=== PATIENT | male | born 1985 | race Caucasian/White ===

== ENCOUNTER 2024-02-28 18:18 | Emergency (ER) | payer OTHER, SELFPAY ==
[2024-02-28 18:27] VITALS: BP 138/98; PULSE 88; RESP 16; TEMP 37.1; O2SAT 98
--- NOTE | 2024-02-28 19:24 | ED.EXTPRO ---
HPI - Extremity Problem General Chief complaint: Extremity Problem,Nontraumatic Stated complaint: BLE cellulitis Time Seen by Provider: 02/28/24 18:54 History of Present Illness HPI Narrative: 38-year-old male presents to the emergency department for evaluation for suspected cellulitis. Patient has had the issue before. Patient attributes it to his long work boots that he wears. Patient states that he did take some of his family members antibiotics and these helped. Patient states he was on a course of amoxicillin for approximately 1 week and the rash almost completely resolved. Patient states after stopping the antibiotics the rash worsened again. Patient is not diabetic Related Data Allergies Allergy/AdvReac Type Severity Reaction Status Date / Time Sulfa (Sulfonamide Allergy Intermediate RASH, Verified 02/28/24 18:20 Antibiotics) SWELLING Review of Systems Review of Systems: All systems reviewed & are unremarkable except as noted in HPI and below Exam Narrative: APPEARANCE: Well appearing, no pain, no distress, well-nourished. HEAD: normocephalic, atraumatic. EYES: PERRLA/EOMI, conjunctivae clear. NOSE: Normal no drainage EARS:TMS clear with good light reflex. THROAT: Pharynx clear, no exudate. NECK: Supple. No adenopathy, no masses. RESPIRATORY: Airway patent, respirations nonlabored. Clear to auscultation bilaterally, no rales, rhonchi, wheezing. CARDIOVASCULAR: Regular rate and rhythm without murmurs rubs or gallops. ABDOMINAL: Soft, nontender, nondistended, normal bowel sounds MUSCULOSKELETAL: Moves all extremities. Strength/ROM intact, No edema, No calf tenderness. NEURO: Alert. Cranial nerves II through XII intact. Good gait. Good coordination SKIN: cellulitis on left lateral dumont and right dumont Course Course Emergency Course: patient was started on antibiotics for cellulitis Vital Signs Vital signs: Vital Signs Temperature 98.7 F 02/28/24 18: Pulse Rate 88 02/28/24 18:27 Respiratory Rate 16 02/28/24 18:27 Blood Pressure 138/98 H 02/28/24 18:27 Pulse Oximetry 98 02/28/24 18:27 Temperature 98.7 F 02/28/24 18:27 Pulse Rate 88 02/28/24 18:27 Respiratory Rate 16 02/28/24 18:27 Blood Pressure 138/98 H 02/28/24 18:27 Pulse Oximetry 98 07/13/24 18:27 MDM - Extremity (Nontraumatic) MDM Narrative Medical decision making narrative: 38-year-old male presents emergency department for evaluation of bilateral lower extremity rash consistent with cellulitis. patient was started on antibiotics emergency department and patient was provided antibiotics for home. Patient was encouraged close follow-up with his physician for wound check. All questions concerns were addressed. Differential Diagnosis Differential diagnosis: Likely herpes zoster, cellulitis and other ( Psoriasis) Discharge Plan Discharge Clinical Impression: Cellulitis Patient Disposition: Home, Self-Care Condition: Stable Instructions: Antibiotic Form, Cellulitis (ED) Additional Instructions: Antibiotic as directed until completed. Have close follow-up with a primary care physician for a wound check. If you have any worsening symptoms please call or return to the emergency department. Prescriptions: New cephalexin 500 mg capsule 500 mg PO Q6H 7 Days Qty: 28 0RF Follow-up/Referrals: Clint Virk MD [Physician] - PHYSICIAN,DIRECTOR PAYER [Primary Care Provider] -
== END 2024-02-28 20:12 | disposition home or self-care (01) ==
PROVIDERS: Emergency Provider Emergency Medicine
DX: L03.116 Cellulitis of left lower limb (principal); L03.115 Cellulitis of right lower limb
CPT/HCPCS: 96365; 99284; J0696

== ENCOUNTER 2024-03-08 12:43 | Emergency (ER) | payer OTHER, SELFPAY ==
[2024-03-08 12:49] VITALS: BP 132/73; PULSE 77; RESP 20; TEMP 36.6; O2SAT 100
--- NOTE | 2024-03-08 15:10 | ED.SKABFB ---
HPI - Skin/Abscess/Foreign Bdy General Chief complaint: Skin/Abscess/Foreign Body Stated complaint: hives after finishing abx Time Seen by Provider: 03/08/24 14:54 History of Present Illness HPI narrative: 38-year-old male presenting with hives. States that he was treated here about 10 days ago for cellulitis. States that he took his last dose of Keflex yesterday morning. This morning he woke up with hives on his face so he became concern for allergic reaction. Denies shortness of breath, throat swelling, nausea vomiting, or other systemic symptoms. States that he still has some redness on his right lower leg. Related Data Allergies Allergy/AdvReac Type Severity Reaction Status Date / Time Sulfa (Sulfonamide Allergy Intermediate RASH, Verified 03/08/24 14:36 Antibiotics) SWELLING cephalexin Allergy Hives Verified 03/08/24 14:40 latex AdvReac Hives Verified 03/08/24 14:36 Review of Systems Review of Systems: All systems reviewed & are unremarkable except as noted in HPI and below Exam Narrative: GENERAL: Well-appearing, no acute distress, pleasant cooperative HEAD: Normocephalic, atraumatic. EYES: PERRLA and EOMI. ENT: Mucous membranes moist. NECK: Supple. CHEST: Clear to auscultation. No respiratory distress. No wheezing HEART: Regular rate and rhythm EXTREMITIES: Normal range of motion. SKIN: Warm, dry, + urticarial rash affecting face, neck NEURO: No focal deficits. Alert and oriented x3. PSYCH: Normal mood and affect. Course Vital Signs Vital signs: Vital Signs Temperature 97.8 F 03/08/24 12:49 Pulse Rate 77 03/08/24 12:49 Respiratory Rate 20 03/08/24 12:49 Blood Pressure 132/73 03/08/24 12:49 Pulse Oximetry 100 03/08/24 12:49 Oxygen Delivery Room Air 03/08/24 12:49 Temperature 97.8 F 03/08/24 12:49 Pulse Rate 77 03/08/24 12:49 Respiratory Rate 20 03/08/24 12:49 Blood Pressure 132/73 03/08/24 12:49 Pulse Oximetry 100 03/08/24 12:49 Oxygen Delivery Room Air 03/08/24 12:49 MDM - Skin/Abscess/Foreign Bdy MDM Narrative Medical decision making narrative: 38-year-old male presenting with urticaria. Vitals are stable. Exam remarkable for the above. He does have an urticarial rash, there is no evidence of anaphylaxis or systemic involvement. Advised daily cetirizine. Patient continues to have evidence of some cellulitis involving his right lower extremity. Start him on clinda. He states that he has follow-up appointment already scheduled for next week. Appropriate return precautions given. Discharged in stable condition. Differential Diagnosis Differential diagnosis: Likely abscess of skin or subcutaneous tissue, urticaria, cellulitis and contact dermatitis Medical Records Attestation: I reviewed the patient's medical records. Critical Care Time Critical Care Time Critical Care Time: No Discharge Plan Discharge Clinical Impression: Urticaria, Cellulitis Patient Disposition: Home, Self-Care Condition: Stable Instructions: Antibiotic Form, Urticaria (ED) Additional Instructions: Please take Zyrtec once daily to help with the hives. We have started you on a different antibiotic to help with the rashes on your legs. Make sure to follow-up with your doctor next week. If your symptoms worsen or other concerning symptoms arise, please return to the ER. Prescriptions: New clindamycin HCl 300 mg capsule 300 mg PO Q6H Qty: 40 0RF No Action cephalexin 500 mg capsule 500 mg PO Q6H 7 Days Qty: 28 0RF Follow-up/Referrals: UNKNOWN,DOCTOR [Primary Care Provider] - Stand Alone Forms: Work/School Release IP
== END 2024-03-08 15:22 | disposition home or self-care (01) ==
PROVIDERS: Emergency Provider Emergency Medicine
DX: L50.9 Urticaria, unspecified (principal); L03.115 Cellulitis of right lower limb
CPT/HCPCS: 99283

== ENCOUNTER 2024-06-22 08:03 | Emergency (ER) | payer OTHER, SELFPAY ==
--- NOTE | 2024-06-22 08:17 | ED.SKABFB ---
HPI - Skin/Abscess/Foreign Bdy General Chief complaint: Skin/Abscess/Foreign Body Stated complaint: hives Time Seen by Provider: 06/22/24 09:07 Source: patient, RN notes reviewed and old records reviewed Mode of arrival: ambulatory Limitations: no limitations History of Present Illness HPI narrative: 38-year-old male to Express Care with complaint of erythematous, itching rash to A's, chest, back, bilateral arms. Patient reports that he ate [place] food on Friday night that contained seafood. Patient reports that rash began Friday morning. Patient endorses having a similar reaction to seafood once before. Patient does not currently have a PCP. Patient denies cough, shortness of breath, throat swelling, difficulty swallowing. Patient able to tolerate fluids by mouth. Patient resting uncomfortably in exam room in no acute distress. Respirations even and nonlabored. Patient able to speak in complete sentences without difficulty. Related Data Allergies Allergy/AdvReac Type Severity Reaction Status Date / Time Sulfa (Sulfonamide AdvReac Intermediate RASH, Verified 06/22/24 08:27 Antibiotics) SWELLING cephalexin AdvReac Mild Hives Verified 06/22/24 08:27 latex AdvReac Mild Hives Verified 06/22/24 08:27 Review of Systems Review of Systems: All systems reviewed & are unremarkable except as noted in HPI and below Constitutional: Constitutional: Reports no additional constitutional complaints Eyes: Eyes: Reports no additional eye complaints ENT: Reports system reviewed and no additional complaints, except as documented Cardiovascular: Cardiovascular: Reports no additional cardiovascular complaints, Denies chest pain and Denies dyspnea Respiratory: Respiratory: Reports no additional respiratory complaints, Denies cough and Denies dyspnea Musculoskeletal: Musculoskeletal: Reports no additional musculoskeletal complaints Integumentary/Breasts: Skin/Breast: Reports pruritus, Reports erythema and Reports rash Neurologic: Reports system reviewed and no additional complaints, except as documented Psychiatric: Psychiatric: Reports no additional psychiatric complaints PMFSH Comments At the time of my signature, I reviewed and agree with the nursing past medical, surgical, social, and family history. There is no relevant family history pertinent to the patient complaint. Exam Const: General: cooperative, no acute distress, alert, uncomfortable and well nourished Nutritional Appearance: well nourished Orientation/consciousness: patient oriented x3 Limitations: no limitations HENMT: Head: normal to inspection Ears: external ears normal Face/Nose/Sinus: Normal external nose present, Normal nares present, normal facial exam, No erythema and No edema Face and sinus: normal facial exam, no erythema and no edema Mouth: Yes Normal oral and palatal mucosa present Eyes: General: appearance normal, both eyes and all related structures Neck: Neck: normal visual inspection, full ROM and no meningeal signs Chest: Chest palpation & inspection: normal inspection of the chest Resp: Effort & Inspection: normal respiratory effort and able to speak in complete sentences Auscultation: clear to auscultation bilaterally Cardio: Jugular venous distension: no JVD Rate: regular rate Rhythm: regular rhythm Back/Spine/Pelvis: Cervical Spine: cervical ROM normal Skin: General skin exam: normal color, no rashes or lesions noted and turgor normal Rashes: rashes noted patches diffuse multiple locations color red Neuro: General: patient oriented x3, gait normal, moves all extremities and no meningeal signs Speech: normal speech Gait exam (Neuro): Normal gait present Extrem: General: normal to inspection, full ROM and capillary refill normal Psych: Appearance: grossly normal and well kempt Course Course Emergency Course: Some parts of this dictation were generated by voice recognition software and may contain typographical and/or grammatical inaccuracies. Level of Care: Express Care Visit Vital Signs Vital signs: Vital Signs Temperature 36.7 C 06/22/24 08:26 Pulse Rate 81 06/22/24 08:26 Respiratory Rate 16 06/22/24 08:26 Blood Pressure 119/85 06/22/24 08:26 Pulse Oximetry 100 06/22/24 08:26 Oxygen Delivery Room Air 06/22/24 08:26 Temperature 36.7 C 06/22/24 08:26 Pulse Rate 81 06/22/24 08:26 Respiratory Rate 16 06/22/24 08:26 Blood Pressure 119/85 06/22/24 08:26 Pulse Oximetry 100 06/22/24 08:26 Oxygen Delivery Room Air 06/22/24 08:26 reviewed MDM - Skin/Abscess/Foreign Bdy MDM Narrative Medical decision making narrative: 38-year-old male to Express Care with complaint of erythematous, itching rash to A's, chest, back, bilateral arms. Patient reports that he ate [place] food on Friday night that contained seafood. Patient reports that rash began Friday morning. Patient endorses having a similar reaction to seafood once before. Patient does not currently have a PCP. Patient denies cough, shortness of breath, throat swelling, difficulty swallowing. Patient able to tolerate fluids by mouth. Patient resting uncomfortably in exam room in no acute distress. Respirations even and nonlabored. Patient able to speak in complete sentences without difficulty. On exam, erythematous, raised rash to face, abdomen, back, bilateral arms. Consistent with contact dermatitis. Patient is sitting uncomfortably in exam room nontoxic in appearance. Patient appropriate for outpatient treatment and follow-up. Discharge instructions reviewed with patient, as well as provided in writing per nursing staff. The instructions also include specific and strict return/GO TO THE ER as well as f/u information. All questions have been answered, and the patient deny any further questions with discharge and discharge plan. Some parts of this dictation were generated by voice recognition software and may contain typographical and/or grammatical inaccuracies. Differential Diagnosis Differential diagnosis: Likely abscess of skin or subcutaneous tissue, viral exanthem, dermatophytosis, urticaria, herpes zoster, allergic reaction to drug, cellulitis, eczema, insect bites, impetigo and contact dermatitis Discharge Plan Discharge Clinical Impression: Contact dermatitis Patient Disposition: Home, Self-Care Condition: Stable Instructions: Contact Dermatitis (DC) Additional Instructions: See attached referral information for an diabetes physician. Start prescription steroids tomorrow morning. Apply triamcinolone cream as directed Take prednisone as directed Avoid hot showers May apply calamine lotion to rash Avoid scratching and this can cause a secondary infection. May take benadryl 25-50mg every 6 hours as needed for itching. Follow up with your PCP in 3-5 days if symptoms persist or sooner if they worsen Go to the Emergency Room if symptoms worsen- fever, rash spreading with treatment, shortness of breath, tongue swelling, drooling, or chest pain Prescriptions: New prednisone 20 mg tablet See Rx Instructions .ROUTE .COMPLEX Qty: 9 0RF Rx Instructions: Take 40mg x3 days, 20mg x3 days triamcinolone acetonide 0.1 % cream 1 applic topical BID Qty: 453.6 0RF triamcinolone acetonide 0.025 % cream 1 applic topical BID Qty: 80 0RF Follow-up/Referrals: PHYSICIAN,MUNICIPAL BOND TRADER [Primary Care Provider] - Walter Arthur MD [Physician] -
[2024-06-22 08:26] VITALS: BP 119/85; PULSE 81; RESP 16; TEMP 36.7; O2SAT 100
[2024-06-22] MEDS: methylPREDNISolone ACETATE 80 MG/ML VIAL IM (08:57)
== END 2024-06-22 09:22 | disposition home or self-care (01) ==
PROVIDERS: Emergency Provider Nurse Practitioner Family
DX: L25.9 Unspecified contact dermatitis, unspecified cause (principal)
CPT/HCPCS: 96372; 99213; G0463; J1010

== ENCOUNTER 2025-04-03 15:44 | Emergency (ER) | payer OTHER, SELFPAY ==
--- NOTE | 2025-04-03 15:45 | ED_ITS ---
HPI - Ear Problem General Chief complaint: Ear Stated complaint: ear pain Time Seen by Provider: 04/03/25 15:45 patient presents to the [facility] with complaints of right ear pain that began yesterday. Patient noted he had been swimming and boating and thinks this is related to the pain. Patient noted using an [id number] swimmer's ear drops that bahena significantly. patient reports earlier this month had similar symptoms and did take leftover amoxicillin and symptoms did clear. No other symptoms related to this including nasal congestion, cough, sore throat, headache, or dizziness. Related Data Allergies Allergy/AdvReac Type Severity Reaction Status Date / Time Sulfa (Sulfonamide Allergy Intermediate RASH, Verified 04/03/25 15:54 Antibiotics) SWELLING cephalexin Allergy Mild Hives Verified 04/03/25 15:54 latex Allergy Mild Hives Verified 04/03/25 15:54 Review of Systems Constitutional: Constitutional: Reports as per HPI, Denies chills, Denies fatigue, Denies fever(s) and Denies weakness Eyes: Eyes: Reports no additional eye complaints ENT: Reports as per HPI, Denies vertigo, Denies dizziness, Denies nasal congestion and Denies sore throat Comments: Right ear pain Cardiovascular: Cardiovascular: Reports no additional cardiovascular complaints Respiratory: Respiratory: Reports as per HPI, Denies chest congestion, Denies cough, Denies dyspnea and Denies wheezing Gastrointestinal: Gastrointestinal: Reports no additional gastrointestinal complaints Genitourinary: Genitourinary: Reports no additional male genitourinary complaints Musculoskeletal: Musculoskeletal: Reports no additional musculoskeletal complaints Integumentary/Breasts: Skin/Breast: Reports system reviewed and no additional complaints, except as docu Neurologic: Reports as per HPI, Denies vertigo, Denies dizziness and Denies headache(s) Psychiatric: Psychiatric: Reports no additional psychiatric complaints Endocrine: Endocrine: Reports no additional endocrine complaints Hematologic/Lymphatic: Hematologic/Lymphatic: Reports no additional hematologic/lymphatic complaints Allergic/Immunologic: Allergic/Immunologic: Reports no additional allergic/immunologic complaints Exam Const: General: healthy appearing and no acute distress Nutritional Appearance: well nourished Orientation/consciousness: patient oriented x3 Limitations: no limitations HENMT: Head: normal to inspection Ears: external ears abnormal ( minimal pain with movement right ear) and TM's normal bilaterally Face/Nose/Sinus: Normal external nose present and Normal nares present Face and sinus: normal facial exam Mouth: Yes Normal oral and palatal mucosa present Throat: posterior oropharynx normal Other: diffuse erythema with significant drainage and swelling to right ear canal. Left ear canal normal Neck: Neck: no lymphadenopathy Resp: Effort & Inspection: normal respiratory effort Auscultation: clear to auscultation bilaterally Cardio: Rate: regular rate Rhythm: regular rhythm Skin: General skin exam: normal color Rashes: no rashes Wounds: no wounds Neuro: General: patient oriented x3 and moves all extremities Speech: normal speech Gait exam (Neuro): Normal gait present Psych: Mental Status: mental status grossly normal Affect: normal affect Attitude: cooperative Course Course Level of Care: Express Care Visit Medical Decision Making MDM Narrative Medical decision making narrative: Discharge instructions reviewed with patient, as well as provided in writing per nursing staff. The instructions also include specific and strict return/GO TO THE ER as well as f/u information. All questions have been answered, and the patient deny any further questions with discharge and discharge plan. Differential Diagnosis Differential Diagnosis: Otitis media, otitis externa, sinusitis, upper respiratory infection Medical Records Medical records reviewed: Yes I reviewed the external patient's medical records. Discharge Plan Discharge Clinical Impression: Otitis externa Qualifiers: Laterality: right Patient Disposition: Home Condition: Stable Instructions: Antibiotic Form, Swimmer's Ear (ED) Additional Instructions: -Ear drops as directed for 7-10 days until the pain and swelling are gone. -When administer drug into the affected ear; make sure to ly down with the affected ear facing upward, message the ear canal to help the drops reach the medial end of the canal, then remain in that position for at least 5 mintues. -Avoid using cotton tipped applicator for ears cleaning -Avoid exposing swimming or exposing the affected ear to water during the treatment period Take or alternate tylenol or ibuprofen every 4 - 6 hours if needed for pain. Follow up with primary care provider if condition is not improving in 7 days or sooner if there is new concern. Patient Language: Icelandic Prescriptions: New ciprofloxacin-dexamethasone 0.3-0.1 % drops,suspension 4 drp RIGHT EAR Q12H 7 Days Qty: 7.5 0RF Follow-up/Referrals: PHYSICIAN,CUSHION SEWER [Primary Care Provider] - Time of Disposition: 16:02
--- OUTSIDE RECORDS SUMMARY | 2025-04-03 15:47 | XMS_ITS | Clinical Summary ---
Author Organization [facility] [employer] Address [address] [place] [address] Care Team Providers Care [employer] Patrolman Name Role Phone Unavailable Primary Care Provider Unavailabl e Source Comments [facility],non-owned Affiliates and Associated Physician Practices is amultiple site organization consisting of ambulatory clinics and hospital sitesin [place], [place], [place] and [place]. This disclosure is being madepursuant to the Care Everywhere program and may not contain all information available regarding this patient. Last updated 18.[facility] [employer] Allergies Active Allergy Reactions Criticality Noted Date Comments Sulfamethazine Urticaria Medium 05/05/2017 Medications * Be aware that medications may not be up to date on this document. Alwaysverify current medications with the patient. triamcinolone acetonide (KENALOG) 0.1 % cream Apply to affected area 3 times daily 80 g 1 05/05/2017 Active Social History Tobacco Use Types Packs/Day Years Used Date Smoking Tobacco: Every Day Smokeless Tobacco: Never Sex and Gender Information Value Date Recorded Sex Assigned at Not on file Legal Sex Male 2:35 PM CDT Gender Identity Not on file Sexual Orientation Not on file Last Filed Vital Signs Vital Sign Reading Time Taken Comments Blood Pressure 120/70 05/05/2017 3:54 PM CDT Pulse 80 05/05/2017 3:54 PM CDT Temperature 36.7 C (98 F) 05/05/2017 3:54 PM CDT Respiratory Rate 18 05/05/2017 3:54 PM CDT Oxygen Saturation 98% 05/05/2017 3:54 PM CDT Inhaled Oxygen Concentration - - Weight 108.9 kg (240 lb) 05/05/2017 3:54 PM CDT Height 185.4 cm (6' 1) 05/05/2017 3:54 PM CDT Body Mass Index 31.66 05/05/2017 3:54 PM CDT Plan of Treatment Health Maintenance Due Date Last Done Comments HIV SCREENING 12/21/2002 HEPATITIS C SCREENING 12/17/2005 DTAP/TDAP/TD VACCINES (1 - Tdap) 12/21/2006 HEPATITIS B VACCINE (1 of 3 - 19+ 3-dose series) 12/21/2006 HPV VACCINE (1 - 3-dose SCDM series) 12/21/2014 COVID-19 VACCINE (1 - 2023-2 5 season) 2024 DEPRESSION SCREENING 08/18/2024 INFLUENZA VACCINE (#1) 2025 ZOSTER VACCINE (1 of 2) 12/21/2037 HIB VACCINE Aged Out No longer eligi ble based on patient's age to complete this topic MENINGOCOCCAL (Group B) VACC INE SHARED DECISION-MAKING Aged Out No longer eligibl e based on patient's age to complete this topic MENINGOCOCCAL GROUPS A/C/Y/W VACCINE Aged Out No longer eligible b ased on patient's age to complete this topic PNEUMOCOCCAL VACCINE Aged Out No long er eligible based on patient's age to complete this topic Insurance [facility]
[2025-04-03 15:54] VITALS: BP 123/76; PULSE 74; RESP 18; TEMP 36.4; O2SAT 99
== END 2025-04-03 16:04 | disposition home or self-care (01) ==
PROVIDERS: Emergency Provider Nurse Practitioner Family; Referring Provider Emergency Medicine
DX: H60.91 Unspecified otitis externa, right ear (principal)
CPT/HCPCS: 99213; G0463